=== PATIENT | male | born 1950 | race Caucasian/White ===

== ENCOUNTER 2017-09-09 | Inpatient (IN) | payer MEDICARE ==
[2017-09-09 02:23] VITALS: BP 148/98
[2017-09-09] MEDS ORDERED: Magnesium Hydroxide (MOM) 30 mL UDC PO PRN (02:23)
[2017-09-09] MEDS ORDERED: Maalox 30 mL Cup PO PRN (02:23)
--- NOTE | 2017-09-09 12:12 | History & Physical ---
ADMIT DATE: 09/09/2017 IDENTIFYING INFORMATION: The patient is a 67-year-old male. CHIEF COMPLAINT: "It is old misconfusion." HISTORY OF PRESENT ILLNESS: The patient was admitted on hold for danger to self. The patient apparently was in a parking lot for 3 days, found semiconscious. He was an amputee and homeless. He was found mumbling and talking to himself. He stated he wanted to and told the police to shoot him and said "I will give you $10,000." He did not want to live this is way anymore because he has MRSA and told officers to "fucking shoot me." When I talked to him, he minimizes all this, he acted like he has no issue. He admits that he lives alone and has issues with his trailer. He reports that he sleeps well and eats well. He was in denial about all the above. PAST PSYCHIATRIC HISTORY: The patient denies prior psychiatric treatment. Denies prior suicide attempt; however, I do not think he is a reliable historian. The patient has been started on Seroquel. MEDICAL HISTORY: He is an amputee. ALLERGIES: He has no known drug allergies. FAMILY AND SOCIAL HISTORY: The patient is for 20 years. He was 22 years. He has 3 children, 2 girls and 1 boy. He has a good relation with them. 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 He denies substance abuse. He reports no family psychotic disorder. No history of abuse. No legal problem. MENTAL STATUS EXAMINATION: The patient is appropriately dressed, not well groomed. He looked disheveled, disorganized. He was alert. He was able to tell me the date, where he is, and why he is here. He was alert and oriented to place, person, time, and situation, but minimizing the events after admission, he seems to have ____. He denies any auditory or visual hallucination or paranoia. He reported no intent to harm anyone. He seems to have average intelligence with his fund of knowledge and knowledge of the president of [facility]. Concentration, long and short term memory is fair, able to tell me his date of , age, and where he is. His insight and judgment are questionable. IMPRESSION: AXIS I: Major depression, recurrent with possible psychosis. MEDICAL DIAGNOSES: Deferred to the medical doctor. His assets, he wants to get help. Negative, poor coping skills. INITIAL TREATMENT PLAN: The patient will be started on Lexapro. Continue Seroquel. Do group therapy, milieu therapy, and individual therapy. ESTIMATED LENGTH OF STAY: 3-7 days. DISCHARGE CRITERIA: Decreasing depression and no longer suicidal. After discharge, outpatient treatment. [facility]# [id number]
[2017-09-09] MEDS: Multivitamin Tab PO SCH (16:42)
--- NOTE | 2017-09-09 21:51 | History & Physical ---
ADMIT DATE: 09/09/2017 REASON FOR ADMISSION: Psychiatric disorder. HISTORY OF PRESENT ILLNESS: This is a 67-year-old male with underlying history of hypertension who was admitted to Ger[facility] Unit for underlying psychiatric illnesses by Dr. Ellsworth. Dr. Ellsworth requested medical H and P on this patient. The patient states he is doing fine. Denies any fever or chills. No nausea and no vomiting. No abdominal pain or any other complaints. PAST MEDICAL HISTORY: Hypertension and leg wound infections. PAST SURGICAL HISTORY: Left lower extremity below knee amputation. FAMILY HISTORY: Noncontributory. SOCIAL HISTORY: Lives at home. Denies any alcohol, tobacco, or street drug use. CURRENT MEDICATIONS: As per chart reviewed. HEENT: Unremarkable. HEART: S1 and S2 normal. LUNGS: Clear to auscultation bilaterally. ABDOMEN: Soft. EXTREMITIES: Left lower extremity amputation noted. Right lower extremity wound noted. AVAILABLE LABORATORY DATA: reviewed. ASSESSMENT: 1. Hypertension. 2. Right lower extremity wound. 3. Mental disorders. 4. Obesity. PLAN: The patient will continue Norvasc. Monitor blood pressures. Daily wound care. Psych management per psychiatrist. The patient is medically stable. Thank you Dr. Ellsworth for allowing me to participate in this patient's care. JOB# [id number] KIKE
[2017-09-10] MEDS: Multivitamin Tab PO SCH (08:35)
[2017-09-10] MEDS ORDERED: Escitalopram Oxalate 5 mg Tab PO SCH (09:00)
--- NOTE | 2017-09-10 10:22 | Progress Notes ---
DATE: 09/10/2017 SUBJECTIVE: Case was discussed with staff of the patient, reviewed records. The patient continues to minimize the events that led to his admission with him being exposing himself to danger. He was in a parking lot for 3 days, found semiconscious. He has been homeless, so he said he has a trailer. He is unable to make safe plan for self-care or take care of himself, depressed. Also, one of the staff knows him from prior admissions, which he denies and that he reported that he has been hospitalized many times. He has a history of using drugs. The patient still has very poor insight. Unable to make safe plan for self-care though he is alert and oriented. I did initiate Lexapro on him. There are no side effects, no sedation, no nausea, and no extrapyramidal symptoms. I have been increasing the Lexapro to 10 mg a day and we will continue to work with the patient in group therapy, milieu therapy, and adjust the medication as needed. [facility]# [id number]
--- NOTE | 2017-09-10 13:41 | General Progress Note ---
Subjective - Review of Systems Service Date: 09/10/17 Subjective: patient doing ok no new concern reported Objective - Physical Exam Vitals and I&O: Vital Signs Temp 98 F 09/10/17 06:24 Pulse 79 09/10/17 08:35 Resp 20 09/10/17 06:24 BP 147/86 09/10/17 08:35 Pulse Ox 97 09/10/17 06:24 Intake & Output 09/09/17 09/10/17 09/10/17 18:59 06:59 18:59 Intake Total 1500 360 Balance 1500 360 Intake: Oral 1500 360 Other: # Voids 3 1 Active Medications: Current Medications Acetaminophen (Tylenol) 650 mg PO Q4HR PRN PRN Reason: Mild Pain / Temp above 100 Stop: 11/08/17 02:22 Al Hydrox/Mg Hydrox/Simethicone (Maalox) 30 ml PO Q4HR PRN PRN Reason: GI DISTRESS Stop: 11/08/17 02:22 Amlodipine Besylate (Norvasc) 5 mg PO DAILY THERESA Stop: 11/08/17 20:59 Last Admin: 09/10/17 08:35 Dose: 5 mg Escitalopram Oxalate (Lexapro) 10 mg PO DAILY THERESA PRN Reason: Protocol Stop: 11/09/17 08:59 Last Admin: 09/10/17 08:54 Dose: Not Given Lorazepam (Ativan) 0.5 mg PO Q4HR PRN; Protocol PRN Reason: Anxiety Stop: 10/09/17 02:22 Magnesium Hydroxide (Milk Of Magnesia) 30 ml PO HS PRN PRN Reason: Constipation Multivitamins/Vitamin C (Theragran) 1 tab PO DAILY THERESA Stop: 11/08/17 08:59 Last Admin: 09/10/17 08:35 Dose: 1 tab Quetiapine Fumarate (Seroquel) 50 mg PO HS THERESA PRN Reason: Protocol Stop: 11/08/17 20:59 Last Admin: 09/09/17 21:00 Dose: 50 mg Zolpidem Tartrate (Ambien) 5 mg PO HS PRN PRN Reason: Insomnia Stop: 11/08/17 02:22 Last Admin: 09/09/17 21:00 Dose: 5 mg Cardiovascular: Regular rate Lungs: Clear to auscultation Assessment/Plan - Assessment Assessment: HTN Right leg wound Mental health disorder - Plan Plan: Continue current treatment plan Monitor vitals Wound care Psych follow up
[2017-09-11] MEDS: Multivitamin Tab PO SCH (08:30)
--- NOTE | 2017-09-11 23:51 | Progress Notes ---
DATE: 09/11/2017 Case was discussed with staff of the patient, reviewed records. The patient is on wheelchair. He has his right leg amputated below the knee. Continues to look disheveled, disorganized. Continues to have poor insight about the whole situation with his behavior. He reports that he has to tell them to shoot him, but he did not have the money to give them, but he did mean it. He continues to be unpredictable, impulsive, needing redirection. I will be increasing his Seroquel at bedtime to 100 mg a day and he said that now they told his trailer that he needs a lot of money to get it out. So, he is considered homeless. I will ask the staff to help him with placement and I will be increasing the Seroquel 200 mg at bedtime to help with his episodes of agitation, irritability, poor insight and no side effects with the medication, no sedation, no nausea, no extrapyramidal symptoms. We will continue to work with the patient in group therapy, milieu therapy, adjust medication as needed. JOB# [id number]
[2017-09-12] MEDS: Multivitamin Tab PO SCH ×2 (08:56→09:13)
--- NOTE | 2017-09-13 00:27 | Progress Notes ---
DATE: 09/12/2017 SUBJECTIVE: Case was discussed with staff of the patient and reviewed records. The patient had ____ today, it was upheld on the ground of danger to self. The patient continues to be unpredictable, impulsive, needing redirection. He continues to have poor insight. He is still looking disheveled. We were able to find him a placement and he will be discharged when he is more stable. He is tolerating the increase in Seroquel with no side effects, no sedation, no nausea, no extrapyramidal symptoms. We will continue to work the patient in group therapy, milieu therapy, and adjust medications as needed. JOB# [id number]
[2017-09-13] MEDS: Multivitamin Tab PO SCH (09:07)
--- NOTE | 2017-09-13 16:48 | General Progress Note ---
Subjective - Review of Systems Service Date: 09/13/17 Subjective: patient doing ok c/o inguinal swelling denied pain he is wheelchair bound Objective - Results Recent Labs: Laboratory Last Values POC Glucose 149 MG/DL (70 - 105) H 09/12/17 21:21 - Physical Exam Vitals and I&O: Vital Signs Temp 97.9 F 09/13/17 15:20 Pulse 96 09/13/17 15:20 Resp 20 09/13/17 15:20 BP 155/97 09/13/17 15:20 Pulse Ox 97 09/13/17 15:20 Intake & Output 09/12/17 09/13/17 09/13/17 18:59 06:59 18:59 Intake Total 1500 Balance 1500 Intake: Oral 1500 Other: # Voids 4 # Bowel Movements 1 Stool Characteristics Soft Active Medications: Current Medications Acetaminophen (Tylenol) 650 mg PO Q4HR PRN PRN Reason: Mild Pain / Temp above 100 Stop: 11/08/17 02:22 Al Hydrox/Mg Hydrox/Simethicone (Maalox) 30 ml PO Q4HR PRN PRN Reason: GI DISTRESS Stop: 11/08/17 02:22 Amlodipine Besylate (Norvasc) 5 mg PO DAILY THERESA Stop: 11/08/17 20:59 Last Admin: 09/13/17 09:06 Dose: 5 mg Escitalopram Oxalate (Lexapro) 10 mg PO DAILY THERESA PRN Reason: Protocol Stop: 11/09/17 08:59 Last Admin: 09/13/17 09:07 Dose: 10 mg Lorazepam (Ativan) 0.5 mg PO Q4HR PRN; Protocol PRN Reason: Anxiety Stop: 10/09/17 02:22 Last Admin: 09/13/17 11:36 Dose: 0.5 mg Magnesium Hydroxide (Milk Of Magnesia) 30 ml PO HS PRN PRN Reason: Constipation Multivitamins/Vitamin C (Theragran) 1 tab PO DAILY THERESA Stop: 11/08/17 08:59 Last Admin: 09/13/17 09:07 Dose: 1 tab Quetiapine Fumarate (Seroquel) 150 mg PO HS THERESA PRN Reason: Protocol Stop: 11/12/17 12:33 Zolpidem Tartrate (Ambien) 5 mg PO HS PRN PRN Reason: Insomnia Stop: 11/08/17 02:22 Last Admin: 09/12/17 20:52 Dose: 5 mg Cardiovascular: Regular rate Lungs: Clear to auscultation Abdomen: Other (inguinal hernia noted) Assessment/Plan - Assessment Assessment: HTN Inguinal hernia Right leg wound Mental health disorder - Plan Plan: Surgical consult ordered Monitor vitals Wound care Psych follow up
--- NOTE | 2017-09-13 22:29 | Progress Notes ---
DATE: 09/13/2017 Case was discussed with staff of patient, reviewed records. The patient has been irritable, demanding, continues to have poor insight, yelling and screaming at times. He is compliant with the medication with no side effects, no sedation, no nausea, no extrapyramidal symptoms. I will be increasing his Seroquel to 150 mg at bedtime and so far no side effects, no sedation, no nausea, no extrapyramidal symptoms. We will continue to work with the patient in group therapy, milieu therapy, adjust medication as needed. JOB# [id number]
[2017-09-14] MEDS: Multivitamin Tab PO SCH (08:31)
--- NOTE | 2017-09-14 09:27 | General Progress Note ---
Subjective - Review of Systems Service Date: 09/14/17 Events since last encounter: claims he has had left scrotal mass with pain in the last 8 months PE - scrotal hernia will confirm with ultrasound' patient was surgery if diagnosis is confirmed Objective - Results Recent Labs: Laboratory Last Values POC Glucose 149 MG/DL (70 - 105) H 09/12/17 21:21 - Physical Exam Vitals and I&O: Vital Signs Temp 98 F 09/13/17 20:53 Pulse 102 09/14/17 08:31 Resp 18 09/13/17 20:53 BP 132/86 09/14/17 08:31 Pulse Ox 98 09/13/17 20:53 Intake & Output 09/13/17 09/14/17 09/14/17 18:59 06:59 18:59 Other: Stool Characteristics Soft Active Medications: Current Medications Acetaminophen (Tylenol) 650 mg PO Q4HR PRN PRN Reason: Mild Pain / Temp above 100 Stop: 11/08/17 02:22 Al Hydrox/Mg Hydrox/Simethicone (Maalox) 30 ml PO Q4HR PRN PRN Reason: GI DISTRESS Stop: 11/08/17 02:22 Amlodipine Besylate (Norvasc) 5 mg PO DAILY THERESA Stop: 11/08/17 20:59 Last Admin: 09/14/17 08:31 Dose: 5 mg Escitalopram Oxalate (Lexapro) 10 mg PO DAILY THERESA PRN Reason: Protocol Stop: 11/09/17 08:59 Last Admin: 09/14/17 08:31 Dose: 10 mg Lorazepam (Ativan) 0.5 mg PO Q4HR PRN; Protocol PRN Reason: Anxiety Stop: 10/09/17 02:22 Last Admin: 09/14/17 07:33 Dose: 0.5 mg Magnesium Hydroxide (Milk Of Magnesia) 30 ml PO HS PRN PRN Reason: Constipation Multivitamins/Vitamin C (Theragran) 1 tab PO DAILY THERESA Stop: 11/08/17 08:59 Last Admin: 09/14/17 08:31 Dose: 1 tab Quetiapine Fumarate (Seroquel) 150 mg PO HS THERESA PRN Reason: Protocol Stop: 11/12/17 12:33 Last Admin: 09/13/17 20:49 Dose: 150 mg Zolpidem Tartrate (Ambien) 5 mg PO HS PRN PRN Reason: Insomnia Stop: 11/08/17 02:22 Last Admin: 09/13/17 20:49 Dose: 5 mg Cardiovascular: Regular rate Lungs: Clear to auscultation Abdomen: Other (inguinal hernia noted)
--- NOTE | 2017-09-15 03:23 | Progress Notes ---
DATE: 09/14/2017 Case was discussed with staff of the patient, reviewed records. The patient continues to be unpredictable, impulsive, needing redirection. Continues to have poor insight. He denies that he ever harmed himself or will harm himself. They say he keep asking for the Ativan and I will be changing the frequency to every 6 hours to make sure he does not take it much and get addicted to it, as he would not get anything upon discharge and he has a history of substance abuse, which he denies, but one of the nurse says, ____ know about that and working on placement. Apparently, also a surgeon has looked into him because of a lump and the left sacral mass with pain in the last 8 months and he believes this is scrotal hernia. I am not sure if he will need surgery. They are trying to confirm it before surgery and we will continue the patient in group therapy, milieu therapy, and adjust medication as needed. JOB# [id number]
--- NOTE | 2017-09-15 08:07 | Diagnostic Imaging Report ---
Testicular/scrotal ultrasound HISTORY: Left scrotal mass The right testis measures 4.5 x 2.8 x 2.4 cm. No focal parenchymal lesions. Normal testicular vascular flow. Evidence of a small hydrocele. The right epididymis appears normal. The left testis measures 3.6 x 2.3 x 3.7 cm. No focal lesions. Normal testicular vascular flow. The left epididymis appears normal. Moderate left-sided hydrocele. IMPRESSION: 1. Bilateral hydroceles (left larger than right). 2. No focal intratesticular abnormalities.
[2017-09-15] MEDS: Multivitamin Tab PO SCH (08:42)
[2017-09-15 11:10] LABS: ALB/GLOB RATIO 1.3 (1.0-1.8); ALKALINE PHOSPHATASE 55 U/L (34-104); ANION GAP 7.2 (7.0-16.0); BILIRUBIN,TOTAL 0.3 mg/dL (0.3-1.0); BUN - UREA NITROGEN 21 mg/dL (7-25); CALCIUM SERUM 9.7 mg/dL (8.6-10.3); CARBON DIOXIDE 31.7 mEq/L (21.0-31.0); CHLORIDE 100 mEq/L (98-107); CREATININE - SERUM 0.9 mg/dL (0.7-1.3); GFR AFRICAN-AMERICAN > 60.0 ml/min (>90); GFR NON AFRICAN-AMERICAN > 60.0 ml/min; GLUCOSE 133 mg/dL (70-105); POTASSIUM SERUM 3.9 mEq/L (3.5-5.1); SGOT 12 U/L (13-39); SGPT/ALT 15 U/L (7-52); SODIUM SERUM 135 mEq/L (136-145); TOTAL PROTEIN,SERUM 7.1 gm/dL (6.0-8.3)
--- NOTE | 2017-09-15 11:43 | Diagnostic Imaging Report ---
Portable chest x-ray HISTORY: Shortness of breath The overall heart size appears normal. No acute focal bony processes. No hilar or mediastinal abnormalities. IMPRESSION: No acute abnormalities
--- NOTE | 2017-09-15 14:17 | Discharge Summary ---
DATE OF DISCHARGE: 09/15/2017 IDENTIFYING INFORMATION: The patient is a 67-year-old male. CHIEF COMPLAINT: "It is a misconfusion." HISTORY OF PRESENT ILLNESS: The patient was admitted on hold for danger to self. The patient apparently was in a parking lot with 3 days semiconscious. He was an amputee and homeless. He was mumbling and talking to himself. He stated he wanted to , told the police to shoot him and give him $10,000. He did not want to live this way because he has MRSA and told the officers to "fucking shoot me." When I talked to him, minimized all this. He acted like he has no issues. He admits that he lives alone and has issues with his trailer. He sleeps well and eats well. He was in denial about all the above. The patient denies prior psychiatric treatment; however, found from one of the nurses' ____ before that he has a significant prior psychiatric treatment and substance abuse problem, which he denies. COURSE IN THE HOSPITAL: The patient was continued with Lexapro. I initiated Lexapro and increased to 10 mg a day. The patient also was on Seroquel and I increased the dose to 150 mg at bedtime. The patient needed replacement. The patient was continued with multivitamin, Ambien as needed. The patient ____ amlodipine for high blood pressure and the patient; however, was examined by Dr. Mckeon, who found he have a scrotal hernia and he is no longer suicidal or homicidal, and the patient was transferred to the medical floor to have surgery on his scrotal hernia. Anyway, we were in the process of transferring him to a nursing facility the day after. The patient was no longer suicidal. FINAL DIAGNOSES: AXIS I: Major depression, recurrent with possible psychosis and rule out bipolar disorder, possible history of substance abuse. MEDICAL DIAGNOSES: Hypertension, left scrotal hernia. The patient transferred to the medical floor for operation to be done tomorrow. The patient needs follow up with the psychiatrist, primary care physician and therapist. EXPECTED OUTCOME: Stable if the patient complies with the above. JOB# [id number]
== END 2017-09-15 11:34 | DRG 885 ==
LOC: GERO
PROVIDERS: ADMIT Psychiatry & Neurology Psychiatry; ATTEND Psychiatry & Neurology Psychiatry
DX: F33.3 Major depressive disorder, recurrent, severe with psychotic symptoms (principal); S81.801A Unspecified open wound, right lower leg, initial encounter; E66.9 Obesity, unspecified; I10 Essential (primary) hypertension; N50.9 Disorder of male genital organs, unspecified; K40.90 Unilateral inguinal hernia, without obstruction or gangrene, not specified as recurrent; Z68.35 Body mass index [BMI] 35.0-35.9, adult; Z89.512 Acquired absence of left leg below knee; Z59.0 Homelessness
CPT/HCPCS: 36415-UA; 71045-TC; 76870-TC; 80053-TC; 82948-90; 85730-TC; 93005; Z7610

== ENCOUNTER 2017-09-15 11:38 | Inpatient (IN) | payer MEDICARE ==
[2017-09-15] MEDS ORDERED: D5-0.45NS 1,000 ML IV SCH ×2 (11:55→23:55)
[2017-09-15 12:43] VITALS: BP 184/93
[2017-09-15] MEDS ORDERED: Maalox 30 mL Cup PO PRN (13:02)
--- NOTE | 2017-09-15 23:11 | History & Physical ---
ADMIT DATE: 09/15/2017 REASON FOR ADMISSION: Left inguinal hernia. HISTORY OF PRESENT ILLNESS: This is a 67-year-old male, who was initially admitted for underlying mental illnesses at [facility]. Subsequently, transferred to medical floor for left inguinal hernia treatment. The patient denies any fever or chills. No nausea, no vomiting, no abdominal pain, no chest pain or shortness of breath. PAST MEDICAL HISTORY: Hypertension. PAST SURGICAL HISTORY: Right below knee amputation. FAMILY HISTORY: Noncontributory. SOCIAL HISTORY: Lives at home. Daily tobacco. Denies alcohol or street drug use. CURRENT MEDICATIONS: As per medication reconciliation. ALLERGIES: No known drug allergies. REVIEW OF SYSTEMS: As per HPI, a 12-point system review was negative. PHYSICAL EXAMINATION: VITAL SIGNS: Temperature 98.9, pulse 65, respirations 18, blood pressure 113/48. GENERAL APPEARANCE: This patient does not seem in acute distress. HEENT: Unremarkable. HEART: S1, S2 normal. LUNGS: Clear to auscultation. ABDOMEN: Soft. Left inguinal hernia noted. EXTREMITIES: Right below knee amputation noted with open wound, but no discharge or any redness or any slough noted. AVAILABLE LABORATORY DATA: . ASSESSMENT: 1. Left inguinal hernia. 2. Hypertension. 3. Nicotine dependent. 4. Psych disorder. PLAN: The patient admitted to med/surg floor. General Surgery was consulted. Plan to have a hernia repair surgery tomorrow morning. The patient's admission medication reconciled. Monitor blood pressures. Continue amlodipine. Smoking cessation advised. Psych consulted. Psychotropic management per psychiatrist. Discussed with patient regarding condition. Plan of care discussed with nursing staff. JOB# [id number]
[2017-09-16] MEDS ORDERED: fentaNYL Citrate 100 mcg/2mL Vial ONE (07:34)
[2017-09-16] MEDS ORDERED: Propofol **SURGERY USE ONLY** 20 ML IV ONE (07:36)
[2017-09-16] MEDS ORDERED: Neostigmine 10mg/10mL Vial ONE (07:37)
[2017-09-16] MEDS: Multivitamin Tab PO SCH (08:18)
[2017-09-16] MEDS: Levofloxacin 750mg/150mL 750 MG in Premix Fluid 1 BAG IV SCH (12:23)
[2017-09-16] MEDS: Morphine Sulfate 4 mg/mL 1mL Syr IVP PRN (12:23)
[2017-09-16 12:46] LABS: % EOSINOPHILS 0.9 % (0.0-5.0); % LYMPHOCYTES 8.6 % (20.0-50.0); % MONOCYTES 4.8 % (2.0-10.0); % NEUTROPHILS 85.7 % (40.0-80.0); EOSINOPHILE ABSOLUTE 0.1 Th/cmm (0.1-0.4); HEMATOCRIT 45.4 % (41.0-60); LYMPHOCYTE ABSOLUTE 1.2 Th/cmm (1.5-3.0); MEAN CELL VOLUME 86.7 fl (80-99); MEAN CORPUSCULAR HEMOGLOBIN 28.7 pg (27.0-31.0); MEAN CORPUSCULAR HGB CONC 33.1 pg (28.0-36.0); MEAN PLATELET VOLUME 7.3 fl; MONOCYTE ABSOLUTE 0.7 Th/cmm (0.3-1.0); NEUTROPHILE ABSOLUTE 12.2 Th/cmm (1.8-8.0); PLATELET COUNT 278 Th/cmm (150-400); RED BLOOD COUNT 5.23 Mil/cmm (3.80-5.80); RED CELL DISTRIBUTION WIDTH 14.6 % (11.5-20.0)
[2017-09-16 12:52] LABS: WHITE BLOOD COUNT 14.2 Th/cmm (4.8-10.8)
[2017-09-16 13:18] LABS: ALB/GLOB RATIO 1.2 (1.0-1.8); ALKALINE PHOSPHATASE 52 U/L (34-104); ANION GAP 11.9 (7.0-16.0); BILIRUBIN,TOTAL 0.4 mg/dL (0.3-1.0); BUN - UREA NITROGEN 21 mg/dL (7-25); CALCIUM SERUM 9.2 mg/dL (8.6-10.3); CARBON DIOXIDE 28.9 mEq/L (21.0-31.0); CHLORIDE 101 mEq/L (98-107); GFR AFRICAN-AMERICAN > 60.0 ml/min (>90); GFR NON AFRICAN-AMERICAN > 60.0 ml/min; GLUCOSE 111 mg/dL (70-105); POTASSIUM SERUM 3.8 mEq/L (3.5-5.1); SGOT 12 U/L (13-39); SGPT/ALT 14 U/L (7-52); SODIUM SERUM 138 mEq/L (136-145); TOTAL PROTEIN,SERUM 7.3 gm/dL (6.0-8.3)
--- NOTE | 2017-09-16 18:21 | Operative Report ---
DATE OF SURGERY: 09/16/2017 PREOPERATIVE DIAGNOSES: 1. Left inguinal hernia. 2. Left hydrocele. 3. Hypertension. 4. Psychosis. POSTOPERATIVE DIAGNOSES: 1. Left inguinal hernia. 2. Left hydrocele. 3. Hypertension. 4. Psychosis. OPERATION DONE: 1. Left colon resection with gzom-hw-teep anastomosis. 2. Repair of direct left inguinal hernia (Tiff[place]). SURGEON: Dr. Jung Mckeon ASST: Rhys Porter ANESTHESIA: General. ANESTHESIOLOGIST: Carla Saucedo M.D. ESTIMATED BLOOD LOSS: 10 mL. OPERATIVE FINDINGS: The descending colon and sigmoid were incarcerated into the hernia and could not be reduced. Consequently, the colon had to be resected and following anastomosis dropped back into the abdominal cavity. No hydrocele was found. Direct inguinal hernia was the etiology. DESCRIPTION OF PROCEDURE: The patient was given general anesthesia. The abdomen and scrotum were prepped with Betadine and draped in the appropriate manner. A longer incision was made along the skin line. Bleeders were coagulated. A large piece of the hernia sac was identified and this was opened. About a foot of colon was in the sac. Attempt to widen the hernia opening was done, but in spite of this, the swollen and inflamed colon could not be reduced. Consequently, BERTA instruments were used to transect the colon approximately 4 inches from the hernia opening and a [id number]-fm-[id number] anastomosis was performed utilizing the BERTA instrument. The open end following the hntk-ii-gwec anastomosis was closed with a stapling device as well. The staple line was reinforced with a running suture of 3-0 silk followed by placement of omentum. The colon was then dropped back into the abdominal cavity. Cultures were taken and photographs as well. The transversalis fascia and the shelving edge of the inguinal ligament were approximated utilizing #1 Nurolon. Following satisfactory hemostasis, 0.5% Marcaine was injected into the fascia and subcutaneous tissues. The subcutaneous tissues were closed with 3-0 Vicryl and the skin with a subcuticular suture of 4-0 Vicryl. The patient tolerated the procedure well. JOB# [id number] [facility]
--- NOTE | 2017-09-16 21:51 | General Progress Note ---
Subjective - Review of Systems Service Date: 09/16/17 Subjective: Patient seen and examined s/p hernia repair doing fine denied any complaints tolerating clear liquids Objective - Results Result Diagrams: 09/16/17 12:38 09/16/17 12:38 Recent Labs: Laboratory Last Values WBC 14.2 Th/cmm (4.8-10.8) H 09/16/17 12:38 RBC 5.23 Mil/cmm (3.80-5.80) 09/16/17 12:38 Hgb 15.0 gm/dL (12-16) 09/16/17 12:38 Hct 45.4 % (41.0-60) 09/16/17 12:38 MCV 86.7 fl (80-99) 09/16/17 12:38 MCH 28.7 pg (27.0-31.0) 09/16/17 12:38 MCHC Differential 33.1 pg (28.0-36.0) 09/16/17 12:38 RDW 14.6 % (11.5-20.0) 09/16/17 12:38 Plt Count 278 Th/cmm (150-400) 09/16/17 12:38 MPV 7.3 fl 09/16/17 12:38 Neutrophils % 85.7 % (40.0-80.0) H 09/16/17 12:38 Lymphocytes % 8.6 % (20.0-50.0) L 09/16/17 12:38 Monocytes % 4.8 % (2.0-10.0) 09/16/17 12:38 Eosinophils % 0.9 % (0.0-5.0) 09/16/17 12:38 Basophils % 0.0 % (0.0-2.0) 09/16/17 12:38 Sodium 138 mEq/L (136-145) 09/16/17 12:38 Potassium 3.8 mEq/L (3.5-5.1) 09/16/17 12:38 Chloride 101 mEq/L (98-107) 09/16/17 12:38 Carbon Dioxide 28.9 mEq/L (21.0-31.0) 09/16/17 12:38 Anion Gap 11.9 (7.0-16.0) 09/16/17 12:38 BUN 21 mg/dL (7-25) 09/16/17 12:38 Creatinine 1.0 mg/dL (0.7-1.3) 09/16/17 12:38 Est GFR ( Amer) > 60.0 ml/min (>90) 09/16/17 12:38 Est GFR (Non-Af Amer) > 60.0 ml/min 09/16/17 12:38 BUN/Creatinine Ratio 21.0 09/16/17 12:38 Glucose 111 mg/dL (70-105) H 09/16/17 12:38 Calcium 9.2 mg/dL (8.6-10.3) 09/16/17 12:38 Total Bilirubin 0.4 mg/dL (0.3-1.0) 09/16/17 12:38 AST 12 U/L (13-39) L 09/16/17 12:38 ALT 14 U/L (7-52) 09/16/17 12:38 Alkaline Phosphatase 52 U/L (34-104) 09/16/17 12:38 Total Protein 7.3 gm/dL (6.0-8.3) 09/16/17 12:38 Albumin 4.0 gm/dL (4.2-5.5) L 09/16/17 12:38 Globulin 3.3 gm/dL 09/16/17 12:38 Albumin/Globulin Ratio 1.2 (1.0-1.8) 09/16/17 12:38 - Physical Exam Vitals and I&O: Vital Signs Temp 98.4 F 09/16/17 20:00 Pulse 73 09/16/17 20:00 Resp 18 09/16/17 20:00 BP 142/70 09/16/17 20:00 Pulse Ox 100 09/16/17 20:00 Intake & Output 09/16/17 09/16/17 09/17/17 06:59 18:59 06:59 Intake Total 550 1000 1150 Balance 550 1000 1150 Weight (lbs) 118.388 kg 118.388 kg Intake: Intake, IV Amount 1150 D5-0.45NS 1,000 ml @ 80 1000 mls/hr IV .[id number] [facility] Rx #:[id number] Levofloxacin 750mg/150mL 150 750 mg In Premix Fluid 1 bag @ 100 mls/hr IV Q24H [facility] Rx#:[id number] Oral 550 1000 Other: # Voids 3 3 # Bowel Movements 1 Active Medications: Current Medications Acetaminophen (Tylenol 650mg/20.3ml Suspension) 650 mg PO Q4H PRN PRN Reason: Pain (Mild) Stop: 11/14/17 13:00 Al Hydrox/Mg Hydrox/Simethicone (Maalox) 30 ml PO Q4HR PRN PRN Reason: GI DISTRESS Stop: 11/14/17 13:01 Amlodipine Besylate (Norvasc) 5 mg PO DAILY [facility] Stop: 11/15/17 08:59 Last Admin: 09/16/17 08:17 Dose: Not Given Escitalopram Oxalate (Lexapro) 10 mg PO DAILY [facility] PRN Reason: Protocol Stop: 11/15/17 08:59 Last Admin: 09/16/17 08:17 Dose: Not Given Dextrose/Sodium Chloride (D5-0.45ns) 1,000 mls @ 80 mls/hr IV .[id number] [facility] Stop: 11/14/17 23:54 Last Infusion: 09/16/17 21:13 Dose: Infused Levofloxacin 750 mg/ (Miscellaneous) 150 mls @ 100 mls/hr IV Q24H [facility] Stop: 11/15/17 12:59 Last Infusion: 09/16/17 21:14 Dose: Infused Lorazepam (Ativan) 0.5 mg PO Q6HR PRN; Protocol PRN Reason: Anxiety Stop: 11/14/17 13:06 Magnesium Hydroxide (Milk Of Magnesia) 30 ml PO HS PRN PRN Reason: Constipation Stop: 11/14/17 13:07 Morphine Sulfate (Morphine) 2 mg IVP Q4HR PRN PRN Reason: Abdominal Pain Stop: 11/15/17 07:49 Last Admin: 09/16/17 12:23 Dose: 2 mg Multivitamins/Vitamin C (Theragran) 1 tab PO DAILY [facility] Stop: 11/15/17 08:59 Last Admin: 09/16/17 08:18 Dose: Not Given Quetiapine Fumarate (Seroquel) 150 mg PO HS [facility] PRN Reason: Protocol Stop: 11/14/17 20:59 Last Admin: 09/16/17 21:10 Dose: 150 mg Zolpidem Tartrate (Ambien) 5 mg PO HS PRN PRN Reason: Insomnia Stop: 11/14/17 13:11 Last Admin: 09/16/17 21:15 Dose: 5 mg General: Alert Cardiovascular: Regular rate Lungs: Clear to auscultation Abdomen: Soft, no Tender Assessment/Plan - Assessment Assessment: Left direct incarcerated inguinal hernia s/p repair HTN Mental health disorder - Plan Plan: clear liquids Follow up labs in am Plan of care discussed with nursing staff
[2017-09-17] MEDS: Morphine Sulfate 4 mg/mL 1mL Syr IVP PRN (00:22)
[2017-09-17] MEDS: Magnesium Hydroxide (MOM) 30 mL UDC PO PRN (09:34)
[2017-09-17] MEDS: Multivitamin Tab PO SCH (09:35)
--- NOTE | 2017-09-17 10:21 | General Progress Note ---
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0) H 09/16/17 12:38 Lymphocytes % 8.6 % (20.0-50.0) L 09/16/17 12:38 Monocytes % 4.8 % (2.0-10.0) 09/16/17 12:38 Eosinophils % 0.9 % (0.0-5.0) 09/16/17 12:38 Basophils % 0.0 % (0.0-2.0) 09/16/17 12:38 Sodium 138 mEq/L (136-145) 09/16/17 12:38 Potassium 3.8 mEq/L (3.5-5.1) 09/16/17 12:38 Chloride 101 mEq/L (98-107) 09/16/17 12:38 Carbon Dioxide 28.9 mEq/L (21.0-31.0) 09/16/17 12:38 Anion Gap 11.9 (7.0-16.0) 09/16/17 12:38 BUN 21 mg/dL (7-25) 09/16/17 12:38 Creatinine 1.0 mg/dL (0.7-1.3) 09/16/17 12:38 Est GFR ( Amer) > 60.0 ml/min (>90) 09/16/17 12:38 Est GFR (Non-Af Amer) > 60.0 ml/min 09/16/17 12:38 BUN/Creatinine Ratio 21.0 09/16/17 12:38 Glucose 111 mg/dL (70-105) H 09/16/17 12:38 Calcium 9.2 mg/dL (8.6-10.3) 09/16/17 12:38 Total Bilirubin 0.4 mg/dL (0.3-1.0) 09/16/17 12:38 AST 12 U/L (13-39) L 09/16/17 12:38 ALT 14 U/L (7-52) 09/16/17 12:38 Alkaline Phosphatase 52 U/L (34-104) 09/16/17 12:38 Total Protein 7.3 gm/dL (6.0-8.3) 09/16/17 12:38 Albumin 4.0 gm/dL (4.2-5.5) L 09/16/17 12:38 Globulin 3.3 gm/dL 09/16/17 12:38 Albumin/Globulin Ratio 1.2 (1.0-1.8) 09/16/17 12:38 - Physical Exam Vitals and I&O: Vital Signs Temp 98.0 F 09/17/17 04:00 Pulse 82 09/17/17 09:35 Resp 18 09/17/17 04:00 BP 137/82 09/17/17 09:35 Pulse Ox 99 09/17/17 04:00 Intake & Output 09/16/17 09/17/17 09/17/17 18:59 06:59 18:59 Intake Total 1000 1390 Output Total 900 Balance 1000 490 Weight (lbs) 118.388 kg 120.202 kg Intake: Intake, IV Amount 1150 D5-0.45NS 1,000 ml @ 80 1000 mls/hr IV .[id number] [facility] Rx #:[id number] Levofloxacin 750mg/150mL 150 750 mg In Premix Fluid 1 bag @ 100 mls/hr IV Q24H [facility] Rx#:[id number] Oral 1000 240 Output: Urine 900 Other: # Voids 3 1 # Bowel Movements 1 Active Medications: Current Medications Acetaminophen (Tylenol 650mg/20.3ml Suspension) 650 mg PO Q4H PRN PRN Reason: Pain (Mild) Stop: 11/14/17 13:00 Al Hydrox/Mg Hydrox/Simethicone (Maalox) 30 ml PO Q4HR PRN PRN Reason: GI DISTRESS Stop: 11/14/17 13:01 Amlodipine Besylate (Norvasc) 5 mg PO DAILY [facility] Stop: 11/15/17 08:59 Last Admin: 09/17/17 09:35 Dose: 5 mg Escitalopram Oxalate (Lexapro) 10 mg PO DAILY [facility] PRN Reason: Protocol Stop: 11/15/17 08:59 Last Admin: 09/17/17 09:34 Dose: 10 mg Dextrose/Sodium Chloride (D5-0.45ns) 1,000 mls @ 80 mls/hr IV .[id number] [facility] Stop: 11/14/17 23:54 Last Infusion: 09/16/17 21:13 Dose: Infused Levofloxacin 750 mg/ (Miscellaneous) 150 mls @ 100 mls/hr IV Q24H [facility] Stop: 11/15/17 12:59 Last Infusion: 09/16/17 21:14 Dose: Infused Lorazepam (Ativan) 0.5 mg PO Q6HR PRN; Protocol PRN Reason: Anxiety Stop: 11/14/17 13:06 Magnesium Hydroxide (Milk Of Magnesia) 30 ml PO HS PRN PRN Reason: Constipation Stop: 11/14/17 13:07 Last Admin: 09/17/17 09:34 Dose: 30 ml Morphine Sulfate (Morphine) 2 mg IVP Q4HR PRN PRN Reason: Abdominal Pain Stop: 11/15/17 07:49 Last Admin: 09/17/17 00:22 Dose: 2 mg Multivitamins/Vitamin C (Theragran) 1 tab PO DAILY [facility] Stop: 11/15/17 08:59 Last Admin: 09/17/17 09:35 Dose: 1 tab Quetiapine Fumarate (Seroquel) 150 mg PO HS [facility] PRN Reason: Protocol Stop: 11/14/17 20:59 Last Admin: 09/16/17 21:10 Dose: 150 mg Zolpidem Tartrate (Ambien) 5 mg PO HS PRN PRN Reason: Insomnia Stop: 11/14/17 13:11 Last Admin: 09/16/17 21:15 Dose: 5 mg General: Alert Cardiovascular: Regular rate Lungs: Clear to auscultation Abdomen: Soft, no Tender - Procedures Procedures: Procedures Procedure Code Date PARTIAL REMOVAL OF COLON 38105 09/15/17 PRP I/KYLIE INIT BLOCK >5 YR 65698 09/15/17 REPAIR LEFT INGUINAL REGION, OPEN APPROACH [id number] 09/15/17 RESECTION OF SIGMOID COLON, OPEN APPROACH [id number] 09/15/17
[2017-09-17] MEDS: metroNIDAZOLE 500mg/NS 100mL 500 MG in Premix Fluid 1 BAG IV SCH ×2 (11:36→18:48)
[2017-09-17] MEDS: Levofloxacin 750mg/150mL 750 MG in Premix Fluid 1 BAG IV SCH (13:25)
--- NOTE | 2017-09-17 22:02 | General Progress Note ---
Subjective - Review of Systems Service Date: 09/17/17 Subjective: Patient seen and examined had small BM yday tolerating diet well Objective - Results Result Diagrams: 09/16/17 12:38 09/16/17 12:38 Recent Labs: Laboratory Last Values WBC 14.2 Th/cmm (4.8-10.8) H 09/16/17 12:38 RBC 5.23 Mil/cmm (3.80-5.80) 09/16/17 12:38 Hgb 15.0 gm/dL (12-16) 09/16/17 12:38 Hct 45.4 % (41.0-60) 09/16/17 12:38 MCV 86.7 fl (80-99) 09/16/17 12:38 MCH 28.7 pg (27.0-31.0) 09/16/17 12:38 MCHC Differential 33.1 pg (28.0-36.0) 09/16/17 12:38 RDW 14.6 % (11.5-20.0) 09/16/17 12:38 Plt Count 278 Th/cmm (150-400) 09/16/17 12:38 MPV 7.3 fl 09/16/17 12:38 Neutrophils % 85.7 % (40.0-80.0) H 09/16/17 12:38 Lymphocytes % 8.6 % (20.0-50.0) L 09/16/17 12:38 Monocytes % 4.8 % (2.0-10.0) 09/16/17 12:38 Eosinophils % 0.9 % (0.0-5.0) 09/16/17 12:38 Basophils % 0.0 % (0.0-2.0) 09/16/17 12:38 Sodium 138 mEq/L (136-145) 09/16/17 12:38 Potassium 3.8 mEq/L (3.5-5.1) 09/16/17 12:38 Chloride 101 mEq/L (98-107) 09/16/17 12:38 Carbon Dioxide 28.9 mEq/L (21.0-31.0) 09/16/17 12:38 Anion Gap 11.9 (7.0-16.0) 09/16/17 12:38 BUN 21 mg/dL (7-25) 09/16/17 12:38 Creatinine 1.0 mg/dL (0.7-1.3) 09/16/17 12:38 Est GFR ( Amer) > 60.0 ml/min (>90) 09/16/17 12:38 Est GFR (Non-Af Amer) > 60.0 ml/min 09/16/17 12:38 BUN/Creatinine Ratio 21.0 09/16/17 12:38 Glucose 111 mg/dL (70-105) H 09/16/17 12:38 Calcium 9.2 mg/dL (8.6-10.3) 09/16/17 12:38 Total Bilirubin 0.4 mg/dL (0.3-1.0) 09/16/17 12:38 AST 12 U/L (13-39) L 09/16/17 12:38 ALT 14 U/L (7-52) 09/16/17 12:38 Alkaline Phosphatase 52 U/L (34-104) 09/16/17 12:38 Total Protein 7.3 gm/dL (6.0-8.3) 09/16/17 12:38 Albumin 4.0 gm/dL (4.2-5.5) L 09/16/17 12:38 Globulin 3.3 gm/dL 09/16/17 12:38 Albumin/Globulin Ratio 1.2 (1.0-1.8) 09/16/17 12:38 - Physical Exam Vitals and I&O: Vital Signs Temp 98.1 F 09/17/17 20:00 Pulse 85 09/17/17 20:00 Resp 18 09/17/17 20:00 BP 154/88 09/17/17 20:00 Pulse Ox 94 09/17/17 20:00 Intake & Output 09/17/17 09/17/17 09/18/17 06:59 18:59 06:59 Intake Total 1390 1250 Output Total 900 850 Balance 490 400 Weight (lbs) 120.202 kg 120.202 kg Intake: Intake, IV Amount 1150 250 D5-0.45NS 1,000 ml @ 80 1000 mls/hr IV .[id number] [facility] Rx #:[id number] Levofloxacin 750mg/150mL 150 150 750 mg In Premix Fluid 1 bag @ 100 mls/hr IV Q24H [facility] Rx#:[id number] metroNIDAZOLE 500mg/NS 100 100mL 500 mg In Premix Fluid 1 bag @ 100 mls/hr IV Q8H [facility] Rx#:[id number] Oral 240 1000 Output: Urine 900 850 Other: # Voids 1 3 # Bowel Movements 0 Active Medications: Current Medications Acetaminophen (Tylenol 650mg/20.3ml Suspension) 650 mg PO Q4H PRN PRN Reason: Pain (Mild) Stop: 11/14/17 13:00 Al Hydrox/Mg Hydrox/Simethicone (Maalox) 30 ml PO Q4HR PRN PRN Reason: GI DISTRESS Stop: 11/14/17 13:01 Last Admin: 09/17/17 17:03 Dose: 30 ml Amlodipine Besylate (Norvasc) 5 mg PO DAILY [facility] Stop: 11/15/17 08:59 Last Admin: 09/17/17 09:35 Dose: 5 mg Escitalopram Oxalate (Lexapro) 10 mg PO DAILY [facility] PRN Reason: Protocol Stop: 11/15/17 08:59 Last Admin: 09/17/17 09:34 Dose: 10 mg Levofloxacin 750 mg/ (Miscellaneous) 150 mls @ 100 mls/hr IV Q24H [facility] Stop: 11/15/17 12:59 Last Infusion: 09/17/17 17:57 Dose: Infused Metronidazole 500 mg/ (Miscellaneous) 100 mls @ 100 mls/hr IV Q8H [facility] Stop: 11/16/17 10:29 Last Admin: 09/17/17 18:48 Dose: 100 mls/hr Lorazepam (Ativan) 0.5 mg PO Q6HR PRN; Protocol PRN Reason: Anxiety Stop: 11/14/17 13:06 Magnesium Hydroxide (Milk Of Magnesia) 30 ml PO HS PRN PRN Reason: Constipation Stop: 11/14/17 13:07 Last Admin: 09/17/17 09:34 Dose: 30 ml Morphine Sulfate (Morphine) 2 mg IVP Q4HR PRN PRN Reason: Abdominal Pain Stop: 11/15/17 07:49 Last Admin: 09/17/17 00:22 Dose: 2 mg Multivitamins/Vitamin C (Theragran) 1 tab PO DAILY [facility] Stop: 11/15/17 08:59 Last Admin: 09/17/17 09:35 Dose: 1 tab Quetiapine Fumarate (Seroquel) 150 mg PO HS [facility] PRN Reason: Protocol Stop: 11/14/17 20:59 Last Admin: 09/17/17 20:58 Dose: 150 mg Zolpidem Tartrate (Ambien) 5 mg PO HS PRN PRN Reason: Insomnia Stop: 11/14/17 13:11 Last Admin: 09/16/17 21:15 Dose: 5 mg General: Alert Cardiovascular: Regular rate Lungs: Clear to auscultation Abdomen: Soft, no Tender Extremities: Other (right leg area open wound with clean surface no discharge or erythema noted) - Procedures Procedures: Procedures Procedure Code Date PARTIAL REMOVAL OF COLON 49423 09/15/17 PRP I/KYLIE INIT BLOCK >5 YR 48756 09/15/17 REPAIR LEFT INGUINAL REGION, OPEN APPROACH [id number] 09/15/17 RESECTION OF SIGMOID COLON, OPEN APPROACH [id number] 09/15/17 Assessment/Plan - Assessment Assessment: Left direct incarcerated inguinal hernia s/p repair HTN Mental health disorder - Plan Plan: Diet as tolerated Levaquin Follow up labs in am DC planing for SNIF in progress Plan of care discussed with nursing staff
[2017-09-18] MEDS: metroNIDAZOLE 500mg/NS 100mL 500 MG in Premix Fluid 1 BAG IV SCH ×2 (02:03→13:03)
[2017-09-18] MEDS ORDERED: Magnesium Citrate 1.75 GM/300 mL Bottle PO ONE (09:17)
--- NOTE | 2017-09-18 09:17 | General Progress Note ---
Subjective - Review of Systems Service Date: 09/18/17 Events since last encounter: has had no BM yesterday and today labs ordered oral laxative ordered Objective - Results Result Diagrams: 09/16/17 12:38 09/16/17 12:38 Recent Labs: Laboratory Last Values WBC 14.2 Th/cmm (4.8-10.8) H 09/16/17 12:38 RBC 5.23 Mil/cmm (3.80-5.80) 09/16/17 12:38 Hgb 15.0 gm/dL (12-16) 09/16/17 12:38 Hct 45.4 % (41.0-60) 09/16/17 12:38 MCV 86.7 fl (80-99) 09/16/17 12:38 MCH 28.7 pg (27.0-31.0) 09/16/17 12:38 MCHC Differential 33.1 pg (28.0-36.0) 09/16/17 12:38 RDW 14.6 % (11.5-20.0) 09/16/17 12:38 Plt Count 278 Th/cmm (150-400) 09/16/17 12:38 MPV 7.3 fl 09/16/17 12:38 Neutrophils % 85.7 % (40.0-80.0) H 09/16/17 12:38 Lymphocytes % 8.6 % (20.0-50.0) L 09/16/17 12:38 Monocytes % 4.8 % (2.0-10.0) 09/16/17 12:38 Eosinophils % 0.9 % (0.0-5.0) 09/16/17 12:38 Basophils % 0.0 % (0.0-2.0) 09/16/17 12:38 Sodium 138 mEq/L (136-145) 09/16/17 12:38 Potassium 3.8 mEq/L (3.5-5.1) 09/16/17 12:38 Chloride 101 mEq/L (98-107) 09/16/17 12:38 Carbon Dioxide 28.9 mEq/L (21.0-31.0) 09/16/17 12:38 Anion Gap 11.9 (7.0-16.0) 09/16/17 12:38 BUN 21 mg/dL (7-25) 09/16/17 12:38 Creatinine 1.0 mg/dL (0.7-1.3) 09/16/17 12:38 Est GFR ( Amer) > 60.0 ml/min (>90) 09/16/17 12:38 Est GFR (Non-Af Amer) > 60.0 ml/min 09/16/17 12:38 BUN/Creatinine Ratio 21.0 09/16/17 12:38 Glucose 111 mg/dL (70-105) H 09/16/17 12:38 Calcium 9.2 mg/dL (8.6-10.3) 09/16/17 12:38 Total Bilirubin 0.4 mg/dL (0.3-1.0) 09/16/17 12:38 AST 12 U/L (13-39) L 09/16/17 12:38 ALT 14 U/L (7-52) 09/16/17 12:38 Alkaline Phosphatase 52 U/L (34-104) 09/16/17 12:38 Total Protein 7.3 gm/dL (6.0-8.3) 09/16/17 12:38 Albumin 4.0 gm/dL (4.2-5.5) L 09/16/17 12:38 Globulin 3.3 gm/dL 09/16/17 12:38 Albumin/Globulin Ratio 1.2 (1.0-1.8) 09/16/17 12:38 - Physical Exam Vitals and I&O: Vital Signs Temp 98.1 F 09/18/17 04:00 Pulse 78 09/18/17 04:00 Resp 18 09/18/17 04:00 BP 130/78 09/18/17 04:00 Pulse Ox 100 09/18/17 04:00 Intake & Output 09/17/17 09/18/17 09/18/17 18:59 06:59 18:59 Intake Total 1250 450 Output Total 850 200 Balance 400 250 Weight (lbs) 120.202 kg 122.379 kg Intake: Intake, IV Amount 250 100 Levofloxacin 750mg/150mL 150 750 mg In Premix Fluid 1 bag @ 100 mls/hr IV Q24H [facility] Rx#:[id number] metroNIDAZOLE 500mg/NS 100 100 100mL 500 mg In Premix Fluid 1 bag @ 100 mls/hr IV Q8H [facility] Rx#:[id number] Oral 1000 350 Output: Urine 850 200 Other: # Voids 3 4 # Bowel Movements 0 Active Medications: Current Medications Acetaminophen (Tylenol 650mg/20.3ml Suspension) 650 mg PO Q4H PRN PRN Reason: Pain (Mild) Stop: 11/14/17 13:00 Al Hydrox/Mg Hydrox/Simethicone (Maalox) 30 ml PO Q4HR PRN PRN Reason: GI DISTRESS Stop: 11/14/17 13:01 Last Admin: 09/17/17 17:03 Dose: 30 ml Amlodipine Besylate (Norvasc) 5 mg PO DAILY [facility] Stop: 11/15/17 08:59 Last Admin: 09/17/17 09:35 Dose: 5 mg Escitalopram Oxalate (Lexapro) 10 mg PO DAILY [facility] PRN Reason: Protocol Stop: 11/15/17 08:59 Last Admin: 09/17/17 09:34 Dose: 10 mg Levofloxacin 750 mg/ (Miscellaneous) 150 mls @ 100 mls/hr IV Q24H [facility] Stop: 11/15/17 12:59 Last Infusion: 09/17/17 17:57 Dose: Infused Metronidazole 500 mg/ (Miscellaneous) 100 mls @ 100 mls/hr IV Q8H [facility] Stop: 11/16/17 10:29 Last Admin: 09/18/17 02:03 Dose: 100 mls/hr Lorazepam (Ativan) 0.5 mg PO Q6HR PRN; Protocol PRN Reason: Anxiety Stop: 11/14/17 13:06 Magnesium Hydroxide (Milk Of Magnesia) 30 ml PO HS PRN PRN Reason: Constipation Stop: 11/14/17 13:07 Last Admin: 09/17/17 09:34 Dose: 30 ml Morphine Sulfate (Morphine) 2 mg IVP Q4HR PRN PRN Reason: Abdominal Pain Stop: 11/15/17 07:49 Last Admin: 09/17/17 00:22 Dose: 2 mg Multivitamins/Vitamin C (Theragran) 1 tab PO DAILY [facility] Stop: 11/15/17 08:59 Last Admin: 09/17/17 09:35 Dose: 1 tab Quetiapine Fumarate (Seroquel) 150 mg PO HS [facility] PRN Reason: Protocol Stop: 11/14/17 20:59 Last Admin: 09/17/17 20:58 Dose: 150 mg Zolpidem Tartrate (Ambien) 5 mg PO HS PRN PRN Reason: Insomnia Stop: 11/14/17 13:11 Last Admin: 09/16/17 21:15 Dose: 5 mg General: Alert Cardiovascular: Regular rate Lungs: Clear to auscultation Abdomen: Soft, no Tender Extremities: Other (right leg area open wound with clean surface no discharge or erythema noted) - Procedures Procedures: Procedures Procedure Code Date PARTIAL REMOVAL OF COLON 38291 09/15/17 PRP I/KYLIE INIT BLOCK >5 YR 61553 09/15/17 REPAIR LEFT INGUINAL REGION, OPEN APPROACH [id number] 09/15/17 RESECTION OF SIGMOID COLON, OPEN APPROACH [id number] 09/15/17
[2017-09-18] MEDS: Multivitamin Tab PO SCH (09:50)
[2017-09-18] MEDS ORDERED: Probiotic Screen MC PRN (12:15)
[2017-09-18] MEDS: Levofloxacin 750mg/150mL 750 MG in Premix Fluid 1 BAG IV SCH (17:24)
--- NOTE | 2017-09-18 21:20 | General Progress Note ---
Subjective - Review of Systems Service Date: 09/18/17 Subjective: Patient seen and examined Patient stated he had good BM today denied any complaints Objective - Results Result Diagrams: 09/16/17 12:38 09/16/17 12:38 Recent Labs: Laboratory Last Values WBC 14.2 Th/cmm (4.8-10.8) H 09/16/17 12:38 RBC 5.23 Mil/cmm (3.80-5.80) 09/16/17 12:38 Hgb 15.0 gm/dL (12-16) 09/16/17 12:38 Hct 45.4 % (41.0-60) 09/16/17 12:38 MCV 86.7 fl (80-99) 09/16/17 12:38 MCH 28.7 pg (27.0-31.0) 09/16/17 12:38 MCHC Differential 33.1 pg (28.0-36.0) 09/16/17 12:38 RDW 14.6 % (11.5-20.0) 09/16/17 12:38 Plt Count 278 Th/cmm (150-400) 09/16/17 12:38 MPV 7.3 fl 09/16/17 12:38 Neutrophils % 85.7 % (40.0-80.0) H 09/16/17 12:38 Lymphocytes % 8.6 % (20.0-50.0) L 09/16/17 12:38 Monocytes % 4.8 % (2.0-10.0) 09/16/17 12:38 Eosinophils % 0.9 % (0.0-5.0) 09/16/17 12:38 Basophils % 0.0 % (0.0-2.0) 09/16/17 12:38 Sodium 138 mEq/L (136-145) 09/16/17 12:38 Potassium 3.8 mEq/L (3.5-5.1) 09/16/17 12:38 Chloride 101 mEq/L (98-107) 09/16/17 12:38 Carbon Dioxide 28.9 mEq/L (21.0-31.0) 09/16/17 12:38 Anion Gap 11.9 (7.0-16.0) 09/16/17 12:38 BUN 21 mg/dL (7-25) 09/16/17 12:38 Creatinine 1.0 mg/dL (0.7-1.3) 09/16/17 12:38 Est GFR ( Amer) > 60.0 ml/min (>90) 09/16/17 12:38 Est GFR (Non-Af Amer) > 60.0 ml/min 09/16/17 12:38 BUN/Creatinine Ratio 21.0 09/16/17 12:38 Glucose 111 mg/dL (70-105) H 09/16/17 12:38 Calcium 9.2 mg/dL (8.6-10.3) 09/16/17 12:38 Total Bilirubin 0.4 mg/dL (0.3-1.0) 09/16/17 12:38 AST 12 U/L (13-39) L 09/16/17 12:38 ALT 14 U/L (7-52) 09/16/17 12:38 Alkaline Phosphatase 52 U/L (34-104) 09/16/17 12:38 Total Protein 7.3 gm/dL (6.0-8.3) 09/16/17 12:38 Albumin 4.0 gm/dL (4.2-5.5) L 09/16/17 12:38 Globulin 3.3 gm/dL 09/16/17 12:38 Albumin/Globulin Ratio 1.2 (1.0-1.8) 09/16/17 12:38 - Physical Exam Vitals and I&O: Vital Signs Temp 97.5 F 09/18/17 16:00 Pulse 80 09/18/17 16:00 Resp 20 09/18/17 16:00 BP 147/80 09/18/17 16:00 Pulse Ox 98 09/18/17 16:00 Intake & Output 09/18/17 09/18/17 09/19/17 06:59 18:59 06:59 Intake Total 550 1503.333 Output Total 200 1003 Balance 350 500.333 Weight (lbs) 122.379 kg 120.202 kg Intake: Intake, IV Amount 200 3.333 metroNIDAZOLE 500mg/NS 200 3.333 100mL 500 mg In Premix Fluid 1 bag @ 100 mls/hr IV Q8H [facility] Rx#:[id number] Oral 350 1500 Output: Urine 200 1000 Stool 3 Other: # Voids 4 Active Medications: Current Medications Acetaminophen (Tylenol 650mg/20.3ml Suspension) 650 mg PO Q4H PRN PRN Reason: Pain (Mild) Stop: 11/14/17 13:00 Al Hydrox/Mg Hydrox/Simethicone (Maalox) 30 ml PO Q4HR PRN PRN Reason: GI DISTRESS Stop: 11/14/17 13:01 Last Admin: 09/17/17 17:03 Dose: 30 ml Amlodipine Besylate (Norvasc) 5 mg PO DAILY [facility] Stop: 11/15/17 08:59 Last Admin: 09/18/17 09:50 Dose: 5 mg Escitalopram Oxalate (Lexapro) 10 mg PO DAILY [facility] PRN Reason: Protocol Stop: 11/15/17 08:59 Last Admin: 09/18/17 09:50 Dose: 10 mg Levofloxacin 750 mg/ (Miscellaneous) 150 mls @ 100 mls/hr IV Q24H [facility] Stop: 11/15/17 12:59 Last Admin: 09/18/17 17:24 Dose: 100 mls/hr Metronidazole 500 mg/ (Miscellaneous) 100 mls @ 100 mls/hr IV Q8H [facility] Stop: 11/16/17 10:29 Last Infusion: 09/18/17 13:05 Dose: 100 mls/hr Lactobacillus Rhamnosus (Culturelle 15b) 1 each PO DAILY [facility] Stop: 11/18/17 08:59 Lorazepam (Ativan) 0.5 mg PO Q6HR PRN; Protocol PRN Reason: Anxiety Stop: 11/14/17 13:06 Magnesium Hydroxide (Milk Of Magnesia) 30 ml PO HS PRN PRN Reason: Constipation Stop: 11/14/17 13:07 Last Admin: 09/17/17 09:34 Dose: 30 ml Miscellaneous (Probiotic Screen) 1 ea MC PRN PRN PRN Reason: PROTOCOL Stop: 11/17/17 12:14 Morphine Sulfate (Morphine) 2 mg IVP Q4HR PRN PRN Reason: Abdominal Pain Stop: 11/15/17 07:49 Last Admin: 09/17/17 00:22 Dose: 2 mg Multivitamins/Vitamin C (Theragran) 1 tab PO DAILY [facility] Stop: 11/15/17 08:59 Last Admin: 09/18/17 09:50 Dose: 1 tab Quetiapine Fumarate (Seroquel) 150 mg PO HS [facility] PRN Reason: Protocol Stop: 11/14/17 20:59 Last Admin: 09/17/17 20:58 Dose: 150 mg Zolpidem Tartrate (Ambien) 5 mg PO HS PRN PRN Reason: Insomnia Stop: 11/14/17 13:11 Last Admin: 09/16/17 21:15 Dose: 5 mg General: Alert Cardiovascular: Regular rate Lungs: Clear to auscultation Abdomen: Soft, no Tender Extremities: Other (right leg area open wound with clean surface no discharge or erythema noted) - Procedures Procedures: Procedures Procedure Code Date PARTIAL REMOVAL OF COLON 40462 09/15/17 PRP I/KYLIE INIT BLOCK >5 YR 40049 09/15/17 REPAIR LEFT INGUINAL REGION, OPEN APPROACH [id number] 09/15/17 RESECTION OF SIGMOID COLON, OPEN APPROACH [id number] 09/15/17 Assessment/Plan - Assessment Assessment: Left direct incarcerated inguinal hernia s/p repair Right leg wound clean Obesity HTN Mental health disorder - Plan Plan: Diet as tolerated Levaquin wound care Follow up labs in am DC planing for SNIF in progress Plan of care discussed with nursing staff
[2017-09-19] MEDS: metroNIDAZOLE 500mg/NS 100mL 500 MG in Premix Fluid 1 BAG IV SCH (02:05)
[2017-09-19] MEDS ORDERED: Lactobacillus Rhamnosus GG 15 Billion CFU CAP.SPRINK PO SCH (09:00)
[2017-09-19] MEDS: Multivitamin Tab PO SCH (09:39)
[2017-09-19] MEDS: Magnesium Hydroxide (MOM) 30 mL UDC PO PRN (09:45)
--- NOTE | 2017-09-19 10:08 | General Progress Note ---
Subjective - Review of Systems Service Date: 09/19/17 Events since last encounter: refused Mag Citrate no BM eating well incision is clean refused blood draw Objective - Results Result Diagrams: 09/16/17 12:38 09/16/17 12:38 Recent Labs: Laboratory Last Values WBC 14.2 Th/cmm (4.8-10.8) H 09/16/17 12:38 RBC 5.23 Mil/cmm (3.80-5.80) 09/16/17 12:38 Hgb 15.0 gm/dL (12-16) 09/16/17 12:38 Hct 45.4 % (41.0-60) 09/16/17 12:38 MCV 86.7 fl (80-99) 09/16/17 12:38 MCH 28.7 pg (27.0-31.0) 09/16/17 12:38 MCHC Differential 33.1 pg (28.0-36.0) 09/16/17 12:38 RDW 14.6 % (11.5-20.0) 09/16/17 12:38 Plt Count 278 Th/cmm (150-400) 09/16/17 12:38 MPV 7.3 fl 09/16/17 12:38 Neutrophils % 85.7 % (40.0-80.0) H 09/16/17 12:38 Lymphocytes % 8.6 % (20.0-50.0) L 09/16/17 12:38 Monocytes % 4.8 % (2.0-10.0) 09/16/17 12:38 Eosinophils % 0.9 % (0.0-5.0) 09/16/17 12:38 Basophils % 0.0 % (0.0-2.0) 09/16/17 12:38 Sodium 138 mEq/L (136-145) 09/16/17 12:38 Potassium 3.8 mEq/L (3.5-5.1) 09/16/17 12:38 Chloride 101 mEq/L (98-107) 09/16/17 12:38 Carbon Dioxide 28.9 mEq/L (21.0-31.0) 09/16/17 12:38 Anion Gap 11.9 (7.0-16.0) 09/16/17 12:38 BUN 21 mg/dL (7-25) 09/16/17 12:38 Creatinine 1.0 mg/dL (0.7-1.3) 09/16/17 12:38 Est GFR ( Amer) > 60.0 ml/min (>90) 09/16/17 12:38 Est GFR (Non-Af Amer) > 60.0 ml/min 09/16/17 12:38 BUN/Creatinine Ratio 21.0 09/16/17 12:38 Glucose 111 mg/dL (70-105) H 09/16/17 12:38 Calcium 9.2 mg/dL (8.6-10.3) 09/16/17 12:38 Total Bilirubin 0.4 mg/dL (0.3-1.0) 09/16/17 12:38 AST 12 U/L (13-39) L 09/16/17 12:38 ALT 14 U/L (7-52) 09/16/17 12:38 Alkaline Phosphatase 52 U/L (34-104) 09/16/17 12:38 Total Protein 7.3 gm/dL (6.0-8.3) 09/16/17 12:38 Albumin 4.0 gm/dL (4.2-5.5) L 09/16/17 12:38 Globulin 3.3 gm/dL 09/16/17 12:38 Albumin/Globulin Ratio 1.2 (1.0-1.8) 09/16/17 12:38 - Physical Exam Vitals and I&O: Vital Signs Temp 97.6 F 09/19/17 04:00 Pulse 83 09/19/17 09:38 Resp 17 09/19/17 04:00 BP 129/73 09/19/17 09:38 Pulse Ox 97 09/19/17 04:00 Intake & Output 09/18/17 09/19/17 09/19/17 18:59 06:59 18:59 Intake Total 1600.000 500 Output Total 1003 800 Balance 597.000 -300 Weight (lbs) 120.202 kg 120.202 kg Intake: Intake, IV Amount 100.000 0 metroNIDAZOLE 500mg/NS 100.000 0 100mL 500 mg In Premix Fluid 1 bag @ 100 mls/hr IV Q8H [facility] Rx#:[id number] Oral 1500 500 Output: Urine 1000 800 Stool 3 Other: # Voids 3 Active Medications: Current Medications Acetaminophen (Tylenol 650mg/20.3ml Suspension) 650 mg PO Q4H PRN PRN Reason: Pain (Mild) Stop: 11/14/17 13:00 Al Hydrox/Mg Hydrox/Simethicone (Maalox) 30 ml PO Q4HR PRN PRN Reason: GI DISTRESS Stop: 11/14/17 13:01 Last Admin: 09/17/17 17:03 Dose: 30 ml Amlodipine Besylate (Norvasc) 5 mg PO DAILY [facility] Stop: 11/15/17 08:59 Last Admin: 09/19/17 09:38 Dose: 5 mg Escitalopram Oxalate (Lexapro) 10 mg PO DAILY [facility] PRN Reason: Protocol Stop: 11/15/17 08:59 Last Admin: 09/19/17 09:38 Dose: 10 mg Levofloxacin 750 mg/ (Miscellaneous) 150 mls @ 100 mls/hr IV Q24H [facility] Stop: 11/15/17 12:59 Last Admin: 09/18/17 17:24 Dose: 100 mls/hr Metronidazole 500 mg/ (Miscellaneous) 100 mls @ 100 mls/hr IV Q8H [facility] Stop: 11/16/17 10:29 Last Infusion: 09/19/17 02:05 Dose: 100 mls/hr Lactobacillus Rhamnosus (Culturelle 15b) 1 each PO DAILY [facility] Stop: 11/18/17 08:59 Last Admin: 09/19/17 09:39 Dose: 1 each Lorazepam (Ativan) 0.5 mg PO Q6HR PRN; Protocol PRN Reason: Anxiety Stop: 11/14/17 13:06 Magnesium Hydroxide (Milk Of Magnesia) 30 ml PO HS PRN PRN Reason: Constipation Stop: 11/14/17 13:07 Last Admin: 09/19/17 09:45 Dose: 30 ml Miscellaneous (Probiotic Screen) 1 ea MC PRN PRN PRN Reason: PROTOCOL Stop: 11/17/17 12:14 Morphine Sulfate (Morphine) 2 mg IVP Q4HR PRN PRN Reason: Abdominal Pain Stop: 11/15/17 07:49 Last Admin: 09/17/17 00:22 Dose: 2 mg Multivitamins/Vitamin C (Theragran) 1 tab PO DAILY [facility] Stop: 11/15/17 08:59 Last Admin: 03/23/18 09:39 Dose: 1 tab Quetiapine Fumarate (Seroquel) 150 mg PO HS [facility] PRN Reason: Protocol Stop: 11/14/17 20:59 Last Admin: 09/18/17 21:41 Dose: 150 mg Zolpidem Tartrate (Ambien) 5 mg PO HS PRN PRN Reason: Insomnia Stop: 11/14/17 13:11 Last Admin: 09/16/17 21:15 Dose: 5 mg General: Alert Cardiovascular: Regular rate Lungs: Clear to auscultation Abdomen: Soft, no Tender Extremities: Other (right leg area open wound with clean surface no discharge or erythema noted) - Procedures Procedures: Procedures Procedure Code Date PARTIAL REMOVAL OF COLON 95609 09/15/17 PRP I/KYLIE INIT BLOCK >5 YR 65121 09/15/17 REPAIR LEFT INGUINAL REGION, OPEN APPROACH [id number] 09/15/17 RESECTION OF SIGMOID COLON, OPEN APPROACH [id number] 09/15/17
--- NOTE | 2017-09-19 17:58 | Pathology Report ---
[id number] Collection date: 09/16/2017 Surgeon: Tosin Mckeon Specimen Description: Sigmoid colon Gross Description: Received in formalin is a 28 cm in length x up to 4.8 cm in outer diameter segment of colon with abundant yellow fatty tissue covering the outer serosal surface. Opening the specimen reveals the normal folded colon mucosa with no focal lesions. The outer surface is smooth and glistening with no evidence for adhesions and no focal lesions are appreciated. Technical Coordinator sections are submitted in five cassettes labeled A1 - A5. Cassette A1 shows mucosal margins. Cassette A2 shows omentum. Cassette A3 to A5 shows random sections. Microscopic Description: The histologic sections show portions of colon mucosa with intact muscular wall and omental adipose tissue showing no focal lesions. Diagnosis: No significant pathologic lesions, sigmoid colon. JOB# [id number] MTDD
--- NOTE | 2017-09-19 22:44 | General Progress Note ---
Subjective - Review of Systems Service Date: 09/19/17 Subjective: late entry: Patient seen and examined earlier today. afebrile tolerating diet well Wanted to smoke cigarette Objective - Results Result Diagrams: 09/16/17 12:38 09/16/17 12:38 Recent Labs: Laboratory Last Values WBC 14.2 Th/cmm (4.8-10.8) H 09/16/17 12:38 RBC 5.23 Mil/cmm (3.80-5.80) 09/16/17 12:38 Hgb 15.0 gm/dL (12-16) 09/16/17 12:38 Hct 45.4 % (41.0-60) 09/16/17 12:38 MCV 86.7 fl (80-99) 09/16/17 12:38 MCH 28.7 pg (27.0-31.0) 09/16/17 12:38 MCHC Differential 33.1 pg (28.0-36.0) 09/16/17 12:38 RDW 14.6 % (11.5-20.0) 09/16/17 12:38 Plt Count 278 Th/cmm (150-400) 09/16/17 12:38 MPV 7.3 fl 09/16/17 12:38 Neutrophils % 85.7 % (40.0-80.0) H 09/16/17 12:38 Lymphocytes % 8.6 % (20.0-50.0) L 09/16/17 12:38 Monocytes % 4.8 % (2.0-10.0) 09/16/17 12:38 Eosinophils % 0.9 % (0.0-5.0) 09/16/17 12:38 Basophils % 0.0 % (0.0-2.0) 09/16/17 12:38 Sodium 138 mEq/L (136-145) 09/16/17 12:38 Potassium 3.8 mEq/L (3.5-5.1) 09/16/17 12:38 Chloride 101 mEq/L (98-107) 09/16/17 12:38 Carbon Dioxide 28.9 mEq/L (21.0-31.0) 09/16/17 12:38 Anion Gap 11.9 (7.0-16.0) 09/16/17 12:38 BUN 21 mg/dL (7-25) 09/16/17 12:38 Creatinine 1.0 mg/dL (0.7-1.3) 09/16/17 12:38 Est GFR ( Amer) > 60.0 ml/min (>90) 09/16/17 12:38 Est GFR (Non-Af Amer) > 60.0 ml/min 09/16/17 12:38 BUN/Creatinine Ratio 21.0 09/16/17 12:38 Glucose 111 mg/dL (70-105) H 09/16/17 12:38 Calcium 9.2 mg/dL (8.6-10.3) 09/16/17 12:38 Total Bilirubin 0.4 mg/dL (0.3-1.0) 09/16/17 12:38 AST 12 U/L (13-39) L 09/16/17 12:38 ALT 14 U/L (7-52) 09/16/17 12:38 Alkaline Phosphatase 52 U/L (34-104) 09/16/17 12:38 Total Protein 7.3 gm/dL (6.0-8.3) 09/16/17 12:38 Albumin 4.0 gm/dL (4.2-5.5) L 09/16/17 12:38 Globulin 3.3 gm/dL 09/16/17 12:38 Albumin/Globulin Ratio 1.2 (1.0-1.8) 09/16/17 12:38 - Physical Exam Vitals and I&O: Vital Signs Temp 98.4 F 09/19/17 11:03 Pulse 83 09/19/17 11:03 Resp 18 09/19/17 11:03 BP 129/73 09/19/17 11:03 Pulse Ox 98 09/19/17 11:03 Intake & Output 09/19/17 09/19/17 09/20/17 06:59 18:59 06:59 Intake Total 500 Output Total 800 Balance -300 Weight (lbs) 120.202 kg Intake: Intake, IV Amount 0 metroNIDAZOLE 500mg/NS 0 100mL 500 mg In Premix Fluid 1 bag @ 100 mls/hr IV Q8H [facility] Rx#:[id number] Oral 500 Output: Urine 800 Other: # Voids 3 Weight Source Bedscale General: Alert Cardiovascular: Regular rate Lungs: Clear to auscultation Abdomen: Soft, no Tender Extremities: Other (right leg area open wound with clean surface no discharge or erythema noted) - Procedures Procedures: Procedures Procedure Code Date PARTIAL REMOVAL OF COLON 03722 09/15/17 PRP I/KYLIE INIT BLOCK >5 YR 86817 09/15/17 REPAIR LEFT INGUINAL REGION, OPEN APPROACH [id number] 09/15/17 RESECTION OF SIGMOID COLON, OPEN APPROACH [id number] 09/15/17 Assessment/Plan - Assessment Assessment: Left direct incarcerated inguinal hernia s/p repair Right leg wound clean Obesity HTN Mental health disorder - Plan Plan: Social service for DC Planning Diet as tolerated Levaquin wound care Follow up labs in am DC to [facility] once cleared by surgery Plan of care discussed with nursing staff
== END 2017-09-19 14:46 | DRG 330 ==
LOC: MSI 11:38
PROVIDERS: ADMIT Family Medicine; ATTEND Family Medicine
PROC: 0DBN0ZZ Excision of Sigmoid Colon, Open Approach (ICD-10-PCS; principal; 2017-09-16)
PROC: 0YQ60ZZ Repair Left Inguinal Region, Open Approach (ICD-10-PCS; 2017-09-16)
DX: K40.90 Unilateral inguinal hernia, without obstruction or gangrene, not specified as recurrent (principal); R65.10 Systemic inflammatory response syndrome (SIRS) of non-infectious origin without acute organ dysfunction; E66.9 Obesity, unspecified; F17.210 Nicotine dependence, cigarettes, uncomplicated; K45.0 Other specified abdominal hernia with obstruction, without gangrene; I10 Essential (primary) hypertension; F29 Unspecified psychosis not due to a substance or known physiological condition; N43.3 Hydrocele, unspecified; Z89.511 Acquired absence of right leg below knee; Z68.35 Body mass index [BMI] 35.0-35.9, adult
CPT/HCPCS: 36415-UA; 80053-TC; 85025-TC; 87070-90; 87075-90; 87205-90; 88307-TC; 90799; 96372; J0690; J1956; J2001; J2405; J2704; J2710; J3010; V2790; X6258; Z7610

== ENCOUNTER 2017-09-19 20:46 | Emergency (ER) | payer MEDICARE ==
--- NOTE | 2017-09-19 21:46 | ED Physician Chart ---
ED Chief Complaint/HPI - Patient Information Date Seen:: 09/19/17 Time Seen:: 20:50 Chief Complaint:: COMBATIVE History of Present Illness:: THIS IS A 67 YO MALE SENT HERE FOR AN EVALUATION FOR PSYCH PLACEMENT BECAUSE HE SUDDENLY BECAME UNCOOPERATIVE, COMBATIVE AND WOULD NOT LET HIS TREATMENT CONTINUE REFUSING TO SIGN ANY PAPERWORK. Allergies:: Allergies Allergy/AdvReac Type Severity Reaction Status Date / Time No Known Allergies Allergy Verified 09/09/17 02:16 Vitals:: Vital Signs - 8 hr 09/19/17 20:47 Temp 98.3 F HR 96 RR 18 BP 142/88 O2 Sat % 96 Historian:: Patient, EMS, Medical Records Review:: Nurse's Note Reviewed, Transfer documents Reviewed ED Review of Systems - Review of Systems General/Constitutional: Other (THE PATIENT WAS UNCOOPERATIVE AND WOULD NOT GIVE A REVIEW OF SYSTEMS.) ED Past Medical History - Past Medical History Obtainable: Yes Past Medical History: HTN, Other (RIGHT BKA, ) Family History: None Social History: Smoker, Alcohol, Illicit Drug Use, Care Facility Surgical History: Hernia (HERNIA REPAIR) Family Medical History - Family Member Mother History Unknown: Yes Ethnicity: Unknown Living Status: Unknown Hx Family Cancer: (Unknown) Hx Family Coronary Artery Disease: (Unknown) Hx Family Congestive Heart Failure: (Unknown) Hx Family Hypertension: (Unknown) Hx Family Stroke: (Unknown) Hx Family Diabetes: (Unknown) Hx Family Seizures: (Unknown) Hx Family Dementia: (Unknown) Hx Family AIDS: (Unknown) Hx Family HIV: No Hx Family COPD: (Unknown) Hx Family Hepatitis: (Unknown) Hx Family Psychiatric Problems: (Unknown) Hx Family Tuberculosis: (Unknown) ED Physical Exam - Physical Examination General/Constitutional: Awake, Well-developed, well-nourished, Alert, No distress, GCS 15, Non-toxic appearing, Ambulatory Other Gen/Cons comments:: VERY COMBATIVE OBESE Head: Atraumatic Eyes: Lids, conjuctiva normal, PERRL, EOMI Skin: Nl inspection, No rash, No skin lesions, No ecchymosis, Well hydrated, No lymphadenopathy ENMT: External ears, nose nl, Nasal exam nl, Lips, teeth, gums nl Neck: Nontender, Full ROM w/o pain, No JVD, No nuchal rigidity, No bruit, No mass, No stridor Respiratory: Nl effort/Exclusion, Clear to Auscultation, No Wheeze/Rhonchi/Rales Cardio Vascular: RRR, No murmur, gallop, rubs, NL S1 S2 GI: No tenderness/rebounding/guarding, No organomegaly, Normal BS's, Nondistended, No mass/bruits, No McBurney tenderness Other GI comments:: RIGHT INQUINAL AREA REDNESS AND TENDERNESS : No CVA tenderness Extremities: No tenderness or effusion, Full ROM, normal strength in all extremities, No edema, Normal digits & nails Neuro/Psych: Alert/oriented, DTR's symmetric, Normal sensory exam, Normal motor strength, Judgement/insight normal, Mood normal, Normal gait, No focal deficits Misc: Normal back, No paraspinal tenderness ED Labs/Radiology/EKG Results - Radiology Results Results: CHEST X-RAY = NAD - EKG Interpretations EKG Time:: 21:14 Rate & Rhythm: RATE= 82, SINUS Dousman: RIGHT ED Assessment - Assessment General Assessment: PSYCHOSIS ED Septic Shock - . Is Septic Shock (SBP<90, OR Lactate>4 mmol\L) present?: No - <6hrs of presentation: Vital Signs: Vital Signs - 8 hr //18 20:47 Temp 98.3 F HR 96 RR 18 BP 142/88 O2 Sat % 96 ED Reassessment (Disposition) - Reassessment Reassessment Condition:: Improved - Diagnosis Diagnosis:: PSYCHOSIS RIGHT INQUINAL AREA SWELLING AND REDNESS - Patient Disposition Condition at Disposition:: Unchanged ED Discharge Plan - Patient Disposition Instructions: Fibroids, [id number], Ovarian Cyst Additional Instructions: THIS PATIENT IS A WAITING SOCIAL SERVICE FOR A PLACEMENT AND WILL BE CARED FOR BY DR. BEGUM STARTING AT 0700 HRS
[2017-09-19 22:00] LABS: % BASOPHILS 0.3 % (0.0-2.0); % EOSINOPHILS 2.2 % (0.0-5.0); % LYMPHOCYTES 14.6 % (20.0-50.0); % MONOCYTES 7.9 % (2.0-10.0); EOSINOPHILE ABSOLUTE 0.3 Th/cmm (0.1-0.4); HEMATOCRIT 40.6 % (41.0-60); HEMOGLOBIN 13.4 gm/dL (12-16); LYMPHOCYTE ABSOLUTE 1.9 Th/cmm (1.5-3.0); MEAN CELL VOLUME 86.8 fl (80-99); MEAN CORPUSCULAR HEMOGLOBIN 28.6 pg (27.0-31.0); MEAN CORPUSCULAR HGB CONC 32.9 pg (28.0-36.0); MEAN PLATELET VOLUME 7.7 fl; NEUTROPHILE ABSOLUTE 9.6 Th/cmm (1.8-8.0); PLATELET COUNT 276 Th/cmm (150-400); RED BLOOD COUNT 4.68 Mil/cmm (3.80-5.80); RED CELL DISTRIBUTION WIDTH 14.7 % (11.5-20.0)
[2017-09-19 22:09] LABS: WHITE BLOOD COUNT 12.8 Th/cmm (4.8-10.8)
[2017-09-19 22:11] LABS: INR 1.04 (0.5-1.4); PROTHROMBIN TIME (TEST) 10.8 SECONDS (9.5-11.5)
[2017-09-19 22:17] LABS: ALB/GLOB RATIO 1.1 (1.0-1.8); ALBUMIN 3.7 gm/dL (4.2-5.5); ALKALINE PHOSPHATASE 46 U/L (34-104); ANION GAP 12.2 (7.0-16.0); BILIRUBIN,TOTAL 0.3 mg/dL (0.3-1.0); BUN - UREA NITROGEN 18 mg/dL (7-25); CALCIUM SERUM 9.4 mg/dL (8.6-10.3); CARBON DIOXIDE 26.8 mEq/L (21.0-31.0); CHLORIDE 101 mEq/L (98-107); CREATININE - SERUM 0.8 mg/dL (0.7-1.3); GFR AFRICAN-AMERICAN > 60.0 ml/min (>90); GFR NON AFRICAN-AMERICAN > 60.0 ml/min; GLUCOSE 116 mg/dL (70-105); SGOT 8 U/L (13-39); SGPT/ALT 10 U/L (7-52); SODIUM SERUM 136 mEq/L (136-145); TOTAL PROTEIN,SERUM 7.1 gm/dL (6.0-8.3)
--- NOTE | 2017-09-20 09:45 | Diagnostic Imaging Report ---
Chest x-ray single view History: S pain Comparison: 09/15/2017 The heart size is normal. No focal pulmonary parenchymal processes. No hilar or mediastinal abnormalities. Impression: No acute abnormalities
== END 2017-09-20 10:00 ==
LOC: ER 20:46
DX: F29 Unspecified psychosis not due to a substance or known physiological condition (principal); R19.09 Other intra-abdominal and pelvic swelling, mass and lump; I10 Essential (primary) hypertension; F17.200 Nicotine dependence, unspecified, uncomplicated
CPT/HCPCS: 36415-UA; 71045-TC; 80053-TC; 83605; 84443-TC; 84484-TC; 85025-TC; 85610-TC; 85730-TC; 93005